=== PATIENT | male | born 1965 | race Caucasian/White ===

== ENCOUNTER 2021-03-28 16:21 | Emergency (ER) | payer OTHER ==
[~2021-03-28 16:21] MED LIST: PERCOCET 5/325 T1 EA PO
[2021-03-28 20:13] LABS: HEMOGLOBIN 15.5 gm/dl (14.0-17.5); RED BLOOD COUNT 5.3 M/UL (4.20-5.50); WHITE BLOOD COUNT 15.8 K/UL (4.5-11.0)
[2021-03-28 20:54] LABS: BUN/CREATININE RATIO 13 (0-10)
== END 2021-03-28 21:45 | disposition short-term general hospital (02) ==
LOC: ER1 16:21
PROVIDERS: Physician Assistant
DX: S42.252A Displaced fracture of greater tuberosity of left humerus, initial encounter for closed fracture (principal); S43.035A Inferior dislocation of left humerus, initial encounter; S91.312A Laceration without foreign body, left foot, initial encounter; S60.512A Abrasion of left hand, initial encounter; S90.811A Abrasion, right foot, initial encounter; Z20.822 Contact with and (suspected) exposure to COVID-19; M25.551 Pain in right hip; M25.552 Pain in left hip; M25.561 Pain in right knee; M25.562 Pain in left knee; E11.9 Type 2 diabetes mellitus without complications; J98.59 Other diseases of mediastinum, not elsewhere classified; I10 Essential (primary) hypertension; V49.40XA Driver injured in collision with unspecified motor vehicles in traffic accident, initial encounter; Y92.410 Unspecified street and highway as the place of occurrence of the external cause
CPT/HCPCS: 29105; 71045; 72100; 72170; 73030; 73090; 73560; 73600; 80053; 82550; 82553; 83874; 84484; 85025; 93005; 96374; 96375; 96376; 99284; J1170; J1885; J2405; U0002

== ENCOUNTER → 2021-05-06 | Outpatient (CLI) | payer BC | LOC: WCC 08:17 | DX: E11.622 Type 2 diabetes mellitus with other skin ulcer (principal); E11.621 Type 2 diabetes mellitus with foot ulcer; L97.822 Non-pressure chronic ulcer of other part of left lower leg with fat layer exposed; L97.212 Non-pressure chronic ulcer of right calf with fat layer exposed; L97.522 Non-pressure chronic ulcer of other part of left foot with fat layer exposed; E66.09 Other obesity due to excess calories; I10 Essential (primary) hypertension; E11.42 Type 2 diabetes mellitus with diabetic polyneuropathy; L03.116 Cellulitis of left lower limb; Z79.4 Long term (current) use of insulin; Z79.899 Other long term (current) drug therapy ==

== ENCOUNTER → 2021-05-14 | Outpatient (CLI) | payer BC | LOC: HEART 5 13:22 | DX: E11.622 Type 2 diabetes mellitus with other skin ulcer (principal); S81.802A Unspecified open wound, left lower leg, initial encounter; S81.801A Unspecified open wound, right lower leg, initial encounter | CPT/HCPCS: 93925; 93970 ==

== ENCOUNTER → 2021-06-11 | Outpatient (CLI) | payer OTHER | LOC: WCC 08:30 | DX: S81.802D Unspecified open wound, left lower leg, subsequent encounter (principal); S81.801D Unspecified open wound, right lower leg, subsequent encounter; V89.2XXD Person injured in unspecified motor-vehicle accident, traffic, subsequent encounter; I87.2 Venous insufficiency (chronic) (peripheral); I87.303 Chronic venous hypertension (idiopathic) without complications of bilateral lower extremity; G47.30 Sleep apnea, unspecified; Z79.4 Long term (current) use of insulin; I10 Essential (primary) hypertension; E11.42 Type 2 diabetes mellitus with diabetic polyneuropathy; E66.01 Morbid (severe) obesity due to excess calories | CPT/HCPCS: G0463 ==